=== PATIENT | female | born 1995 | race Hispanic/Latino ===

== ENCOUNTER 2017-04-29 18:27 | Emergency (ER) | payer MEDICAID ==
[~2017-04-29] VITALS: Ht 157.5 cm; Wt 63.6 kg
[~2017-04-29 18:27] MED LIST: ACHD5005 PO; ALBU8.5H2 IH; CEFU250T11 PO; CEPH250C PO; CEPH500C PO; CODE-54 PO; DCS100C PO; FAMO20TA13 PO; FLUO20CA42 PO; FRS325T PO; GFN600TCR PO; Hydrocodone Bit/Acetaminophen PO; IBP600T1 PO; LBT200T PO; NITR-65 PO; PENI500T PO; PHEN200T27 PO; PRCD5U PO; PRD10T PO; PREN-93 PO; PREN-98 PO; SULF-222 PO
[2017-04-29] MEDS ORDERED: NS IV 500 ML 500 ML IV ONE (18:45)
--- NOTE | 2017-04-29 18:54 | ED GI ---
General Chief Complaint: Abdominal/GI Problems Stated Complaint: HOT AND COLD FLASHES Nursing Triage Note: PT AMBULATED TO ROOM. PT COMPLAINS OF HOT AND COLD FLASHES, LOWER STOMACH PAIN AND VOMITING FOR 3-4 DAYS. PT STATES SHE HASN'T HAD A BM FOR 3-4 DAYS ALSO. Sepsis Screen: No Definite Risk Source of Information: Patient Exam Limitations: No Limitations History of Present Illness Time Seen By Provider: 18:44 Initial Comments Patient presents to ER with a chief complaint of nausea vomiting constipation and abdominal pain for the past 2 days. She says about 4 days ago she had a sore throat associated borrowed some antibiotics off a neighbor and taken them for 2 days but then her sore throat resolved so she stopped taking them. That's when she started experiencing nausea vomiting and constipation. She also feels the past 2 days she's had chills. She has no throat pain anymore. She's had no blood in her vomitus. No rashes. She has not checked her objective temperature. She states she does not drink, smoke and only occasionally uses marijuana. She says she got her Depo-Provera shot on the and has been on Depo-Provera for several years with no periods. Her last period or spotting was over a year ago. She denies discharge. Allergies and Home Medications Allergies Coded Allergies: No Known Drug Allergies (Unverified , 07/30/13) Home Medications Fluoxetine Hcl 20 Mg Capsule, 1 EACH PO DAILY, (Reported) Ibuprofen 600 Mg Tab, 600 MG PO Q6H PRN for PAIN, #80 Prescribed by: JERAMY COLON on 12/31/14 0817 Nitrofurantoin Macrocrystal 100 Mg Capsule, 100 MG PO BID for 7 Days, #14 Ref 0 Prescribed by: JOSE LUIS ROBLEDO on 04/29/171946 Ondansetron 4 Mg Tab.rapdis, 4 MG PO Q6H PRN for NAUSEA/VOMITING-1ST LINE, #10 Ref 0 Prescribed by: JOSE LUIS ROBLEDO on 04/29/171946 Penicillin V Potassium 500 Mg Tablet, 500 MG PO QID, #40 Prescribed by: RAUL DE SOUZA on 05/11/16 0703 Prednisone 10 Mg Tab, 40 MG PO DAILY, #12 Prescribed by: RAUL DE SOUZA on 05/11/16 0703 Review of Systems Constitutional: chills, diaphoresis, No fever, malaise EENTM: No Eye Pain, No Ear Pain Respiratory: Denies Cough, Denies Shortness of Air Cardiovascular: Denies Chest Pain, Denies Lightheadedness Gastrointestinal: Abdominal Pain (epigastric), Constipated, Denies Diarrhea, Nausea, Vomiting Genitourinary: Denies Burning, Denies Discharge, Denies Drainage Musculoskeletal: back pain (chronic upper back pain), No joint pain Skin: No pruritus, No rash Psychiatric/Neurological: Denies Headache, Denies Numbness, Denies Paresthesia Past Gjdwlpv-Yntqoe-Okmanp Hx Patient Social History Alcohol Use: Denies Use Recreational Drug Use: Yes (occasional marijuana use) Smoking Status: Never a Smoker 2nd Hand Smoke Exposure: No Recent Foreign Travel: No Contact w/Someone Who Travel: No Recent Infectious Disease Expo: No Recent Hopitalizations: No Physical Abuse: No Sexual Abuse: No Immunizations Up To Date Tetanus Booster (TDap): Less than 5yrs PED Vaccines UTD: No Date of Influenza Vaccine: Jul 22, 2014 Seasonal Allergies Seasonal Allergies: No Surgeries History of Surgeries: Yes ( X 2) Surgeries: Section Respiratory History of Respiratory Disorde: No Cardiovascular History of Cardiac Disorders: No Neurological History of Neurological Disord: No Reproductive System Hx Reproductive Disorders: No Genitourinary History of Genitourinary Disor: No Gastrointestinal History of Gastrointestinal Di: No Musculoskeletal History of Musculoskeletal Dis: No Endocrine History of Endocrine Disorders: No HEENT History of HEENT Disorders: No HEENT Disorders: Tonsilitis Cancer History of Cancer: No Psychosocial History of Psychiatric Problem: Yes Behavioral Health Disorders: Anxiety, Depression Suicide Risk Score: 0 Integumentary History of Skin or Integumenta: No Blood Transfusions History of Blood Disorders: No Adverse Reaction to a Blood Tr: No Family Medical History Family Medial History: Family history: Asthma 03 MOTHER Family history: Diabetes mellitus 03 FATHER PATERNAL GRANDMOTHER Stroke 03 FATHER Physical Exam Vital Signs VS - Last 72 Hours, by Label 04/29/17 18:32 Temp 96.2 Pulse 83 Resp 20 B/P (MAP) 149/110 Pulse Ox 100 O2 Delivery Room Air Capillary Refill : Less Than 3 Seconds General Appearance: WD/WN, mild distress HEENT: PERRL/EOMI, pharyngeal erythema (with tonsillar enlargement without exudates), other (bilateral TMs retracted with mucoid effusion) Neck: non-tender, supple, normal inspection Respiratory: chest non-tender, lungs clear, normal breath sounds, no respiratory distress, no accessory muscle use Cardiovascular: normal peripheral pulses, regular rate, rhythm, no edema, no murmur Peripheral Pulses: 2+ Dorsalis Pedis (R), 2+ Left Dors-Pedis (L), 2+ Radial Pulses (R), 2+ Radial Pulses (L) Gastrointestinal: non tender, soft, no organomegaly, other (hypoactive bowel sounds) Extremities: normal range of motion, non-tender, normal inspection, no pedal edema, no calf tenderness, normal capillary refill Back: normal inspection, no CVA tenderness Neurologic/Psychiatric: alert, oriented x 3 Skin: normal color, warm/dry Progress/Results/Core Measures Results/Orders Lab Results Laboratory Tests Test 04/29/17 18:32 04/29/17 18:56 04/29/17 19:21 Range/Units Urine Color YELLOW Urine Clarity SLIGHTLY CLOUDY Urine pH 6 5-9 Urine Specific [place] 1.025 H 1.016-1.022 Urine Protein 2+ H NEGATIVE Urine Glucose (UA) NEGATIVE NEGATIVE Urine Ketones NEGATIVE NEGATIVE Urine Nitrite NEGATIVE NEGATIVE Urine Bilirubin NEGATIVE NEGATIVE Urine Urobilinogen NORMAL NORMAL MG/DL Urine Leukocyte Esterase 1+ H NEGATIVE Urine RBC (Auto) 1+ H NEGATIVE Urine RBC 2-5 H /HPF Urine WBC 10-25 H /HPF Urine Squamous Epithelial Cells 5-10 /HPF Urine Crystals NONE /LPF Urine Bacteria TRACE /HPF Urine Casts NONE /LPF Urine Mucus LARGE H /LPF Urine Culture Indicated YES Urine Opiates Screen NEGATIVE NEGATIVE Urine Oxycodone Screen NEGATIVE NEGATIVE Urine Methadone Screen NEGATIVE NEGATIVE Urine Propoxyphene Screen NEGATIVE NEGATIVE Urine Barbiturates Screen NEGATIVE NEGATIVE Ur Tricyclic Antidepressants Screen NEGATIVE NEGATIVE Urine Phencyclidine Screen NEGATIVE NEGATIVE Urine Amphetamines Screen NEGATIVE NEGATIVE Urine Methamphetamines Screen NEGATIVE NEGATIVE Urine Benzodiazepines Screen NEGATIVE NEGATIVE Urine Cocaine Screen NEGATIVE NEGATIVE Urine Cannabinoids Screen POSITIVE H NEGATIVE White Blood Count 15.3 H 4.3-11.0 10^3/uL Red Blood Count 4.87 4.35-5.85 10^6/uL Hemoglobin 14.0 11.5-16.0 G/DL Hematocrit 42 35-52 % Mean Corpuscular Volume 87 80-99 FL Mean Corpuscular Hemoglobin 29 25-34 PG Mean Corpuscular Hemoglobin Concent 33 32-36 G/DL Red Cell Distribution Width 13.1 10.0-14.5 % Platelet Count 264 130-400 10^3/uL Mean Platelet Volume 11.7 H 7.4-10.4 FL Neutrophils (%) (Auto) 74 42-75 % Lymphocytes (%) (Auto) 19 12-44 % Monocytes (%) (Auto) 5 0-12 % Eosinophils (%) (Auto) 1 0-10 % Basophils (%) (Auto) 1 0-10 % Neutrophils # (Auto) 11.3 H 1.8-7.8 X 10^3 Lymphocytes # (Auto) 2.9 1.0-4.0 X 10^3 Monocytes # (Auto) 0.8 0.0-1.0 X 10^3 Eosinophils # (Auto) 0.2 0.0-0.3 10^3/uL Basophils # (Auto) 0.1 0.0-0.1 10^3/uL Neutrophils % (Manual) 67 % Lymphocytes % (Manual) 23 % Monocytes % (Manual) 3 % Eosinophils % (Manual) 0 % Basophils % (Manual) 1 % Metamyelocytes % 2 % Band Neutrophils 4 % Blood Morphology Comment NORMAL Sodium Level 141 135-145 MMOL/L Potassium Level 3.6 3.6-5.0 MMOL/L Chloride Level 107 98-107 MMOL/L Carbon Dioxide Level 18 L 21-32 MMOL/L Anion Gap 16 H 5-14 MMOL/L Blood Urea Nitrogen 8 7-18 MG/DL Creatinine 0.65 0.60-1.30 MG/DL Estimat Glomerular Filtration Rate > 60 BUN/Creatinine Ratio 12 Glucose Level 112 H 70-105 MG/DL Calcium Level 9.9 8.5-10.1 MG/DL Magnesium Level 2.6 H 1.8-2.4 MG/DL Total Bilirubin 0.2 0.1-1.0 MG/DL Aspartate Amino Transf (AST/SGOT) 14 5-34 U/L Alanine Aminotransferase (ALT/SGPT) 13 0-55 U/L Alkaline Phosphatase 83 40-136 U/L Total Protein 7.7 6.4-8.2 GM/DL Albumin 4.7 H 3.2-4.5 GM/DL Lipase 24 8-78 U/L Group A Streptococcus Screen POSITIVE H NEGATIVE My Orders Orders - JOSE LUIS RBOLEDO Cbc With Automated Diff (04/29/17 18:45) Comprehensive Metabolic Panel (04/29/17 18:45) Drug Screen Stat (Urine) (04/29/17 18:45) Lipase (04/29/17 18:45) Magnesium (04/29/17 18:45) Rapid Strep A Screen (04/29/17 18:45) Ua Culture If Indicated (04/29/17 18:45) Chest 1 View, Ap/Pa Only (04/29/17 18:45) Abdomen/Kub 1view (04/29/17 18:45) Saline Lock/Iv-Start (04/29/17 18:45) Ns Iv 500 Ml (Sodium Chloride 0.9%) (04/29/17 18:45) Urine Bedside (04/29/17 18:45) Manual Differential (04/29/17 18:56) Urine Culture (04/29/17 18:32) Medications Given in ED Current Medications Medications Dose Ordered Sig/Brittaney Route Start Time Stop Time Status Last Admin Dose Admin Sodium Chloride 500 ml @ 0 mls/hr Q0M ONCE IV 04/29/17 18:45 04/29/17 18:49 DC 04/29/17 19:25 500 MLS/HR Vital Signs/I&O Vital Sign - Last 12Hours 04/29/17 18:32 Temp 96.2 Pulse 83 Resp 20 B/P (MAP) 149/110 Pulse Ox 100 O2 Delivery Room Air Blood Pressure Mean: 123 Progress Note #1: Time: 18:54 Progress Note Nonspecific presentation without a acute abdomen on exam. We'll get an x-ray looking for constipation. She is not febrile but she has been nauseated so we' ll go ahead and give her some fluids. We will get a chest x-ray and some blood in urine and look for signs of infection. Progress Note #2: Time: 19:40 Progress Note No signs of obstruction on the abdominal x-ray and is a mild white count. Her urine is contaminated but very well ties together the diagnoses. Because she has a rather on acute abdomen on clinical exam will go ahead and accept this diagnosis and treat her with some outpatient antibiotics. Will choose amoxicillin for its ability to hopefully treat the UTI as well as the strep throat. Diagnostic Imaging Diagonstic Imaging: Xray Plain Films/CT/US/NM/MRI: chest [facility] [place], [place] NAME: ANNABEL FLOOD [facility] REC#: [id number] PT STATUS: REG ER : 1995 PHYSICIAN: JOSE LUIS ROBLEDO MD ADMIT DATE: 04/29/17/ER Draft Date of Exam:04/29/17 CHEST 1 VIEW, AP/PA ONLY EXAMINATION: Single view of the chest. INDICATION: Abdominal pain and vomiting. COMPARISON: Prior study from September 02, 2014. FINDINGS: Lungs are clear without evidence of infiltrate or effusion. There is no pneumothorax. Heart size and mediastinal contours appear appropriate. Prominent vascularity appears within normal limits. No acute osseous abnormality is demonstrated. IMPRESSION: No radiographic evidence of an acute cardiopulmonary process. Dictated on workstation # [id number] Dict: 04/29/171914 Trans: 04/29/171919 PJRia [id number] Interpreted by: MICHOACANO COX MD Electronically signed by: Reviewed: Reviewed by [place] Diagonstic Imaging: Xray Plain Films/CT/US/NM/MRI: abdomen Comments [facility]. [place], [place] NAME: ANNABEL FLOOD [facility] REC#: [id number] PT STATUS: REG ER : 1995 PHYSICIAN: JOSE LUIS ROBLEDO MD ADMIT DATE: 04/29/17/ER Draft Date of Exam:04/29/17 ABDOMEN/KUB 1VIEW EXAMINATION: Two views of the abdomen. INDICATION: Upper abdominal pain with vomiting and constipation. FINDINGS: The bowel gas pattern appears nonobstructed. No abnormal bowel dilation is evident. There is moderate stool within the right colon, transverse colon and within the left colon. There is no significant stool at the level of the rectum. There are no unexpected abdominal calcifications demonstrated and there is no evidence of pneumatosis. No osseous abnormality is demonstrated. IMPRESSION: Moderate stool within the colon. There is no bowel dilation to suggest obstruction. Dictated on workstation # [id number] Dict: 04/29/171914 Trans: 04/29/171917 PJRia [id number] Interpreted by: MICHOACANO COX MD Electronically signed by: Reviewed: Reviewed by Me Departure Impression Impression: Primary Impression: Strep pharyngitis Additional Impressions: Urinary tract infection Qualified Codes: N30.01 - Acute cystitis with hematuria Nausea and vomiting Qualified Codes: R11.2 - Nausea with vomiting, unspecified Disposition: HOME, SELF-CARE Condition: Stable Departure-Patient Inst. Decision time for Depature: 19:50 Referrals: [facility] (PCP/Family) Primary Care Physician Patient Instructions: Urinary Tract Infection, Adult (DC) Add. Discharge Instructions: Drink copious amounts of fluids and take antibiotics as prescribed 1000 mg twice a day with food. If you have a sore throat you can use salt water gargles. Please continue to take the antibiotics to completion for ten days. If you have nausea take Zofran and place one tablet under your tongue allowed to absorb every 6 hours as needed. If you have new or progressively worsening symptoms you may return to the ER or follow up with her primary care physician coming Monday. All discharge instructions reviewed with patient and/or family. Voiced understanding. Scripts Amoxicillin (Amoxicillin) 500 Mg Capsule 1000 MG PO BID for 10 Days, #38 CAP 0 Refills Prov: JOSE LUIS ROBLEDO 04/29/17 Ondansetron (Zofran Odt) 4 Mg Tab.rapdis 4 MG PO Q6H Y for NAUSEA/VOMITING-1ST LINE, #10 TAB 0 Refills Prov: JOSE LUIS ROBLEDO 04/29/17 Work/School Note: Work Release Form Date Seen in the Emergency Department: Apr 29, 2017 Return to Work: May 02, 2017 Restrictions: No Restrictions Copy Copies To 1: DMITRIY IBARRA TITUS J Apr 29, 2017 18:54
[2017-04-29 18:55] LABS: BILIRUBIN,URINE NEGATIVE (NEGATIVE); KETONES,URINE NEGATIVE (NEGATIVE); LEUKOCYTE ESTERASE ,URINE 1+ (NEGATIVE); NITRITE,URINE NEGATIVE (NEGATIVE); PH,URINE 6 (5-9); PROTEIN,URINE 2+ (NEGATIVE); UROBILINOGEN,URINE NORMAL (NORMAL)
[2017-04-29 19:09] LABS: BASOPHILS # (AUTO) 0.1 10^3/uL (0.0-0.1); BASOPHILS % (AUTO) 1 % (0-10); EOSINOPHILS # (AUTO) 0.2 10^3/uL (0.0-0.3); EOSINOPHILS % (AUTO) 1 % (0-10); LYMPHOCYTES # (AUTO) 2.9 X 10^3 (1.0-4.0); LYMPHOCYTES % (AUTO) 19 % (12-44); MEAN CORPUSCULAR HEMOGLOBIN 29 PG (25-34); MEAN CORPUSCULAR HGB CONC 33 G/DL (32-36); MEAN CORPUSCULAR VOLUME 87 FL (80-99); MEAN PLATELET VOLUME 11.7 FL (7.4-10.4); MONOCYTES # (AUTO) 0.8 X 10^3 (0.0-1.0); MONOCYTES % (AUTO) 5 % (0-12); NEUTROPHILS # (AUTO) 11.3 X 10^3 (1.8-7.8); NEUTROPHILS % (AUTO) 74 % (42-75); PLATELET COUNT 264 10^3/uL (130-400); RED BLOOD COUNT 4.87 10^6/uL (4.35-5.85); RED CELL DISTRIBUTION WIDTH 13.1 % (10.0-14.5); WHITE BLOOD COUNT 15.3 10^3/uL (4.3-11.0)
--- NOTE | 2017-04-29 19:18 | Diagnostic Imaging Report ---
EXAMINATION: Two views of the abdomen. INDICATION: Upper abdominal pain with vomiting and constipation. FINDINGS: The bowel gas pattern appears nonobstructed. No abnormal bowel dilation is evident. There is moderate stool within the right colon, transverse colon and within the left colon. There is no significant stool at the level of the rectum. There are no unexpected abdominal calcifications demonstrated and there is no evidence of pneumatosis. No osseous abnormality is demonstrated. IMPRESSION: Moderate stool within the colon. There is no bowel dilation to suggest obstruction. Dictated by: Dictated on workstation # [id number]
--- NOTE | 2017-04-29 19:21 | Diagnostic Imaging Report ---
EXAMINATION: Single view of the chest. INDICATION: Abdominal pain and vomiting. COMPARISON: Prior study from September 02, 2014. FINDINGS: Lungs are clear without evidence of infiltrate or effusion. There is no pneumothorax. Heart size and mediastinal contours appear appropriate. Prominent vascularity appears within normal limits. No acute osseous abnormality is demonstrated. IMPRESSION: No radiographic evidence of an acute cardiopulmonary process. Dictated by: Dictated on workstation # [id number]
[2017-04-29 19:30] LABS: ALANINE AMINOTRANSFERASE 13 U/L (0-55); ALBUMIN 4.7 GM/DL (3.2-4.5); ANION GAP 16 MMOL/L (5-14); ASPARTATE AMINO TRANSFERASE 14 U/L (5-34); BAND NEUTROPHILS 4 %; BASOPHILS % (MANUAL) 1 %; BILIRUBIN,TOTAL 0.2 MG/DL (0.1-1.0); BLOOD UREA NITROGEN 8 MG/DL (7-18); BUN/CREATININE RATIO 12; CALCIUM 9.9 MG/DL (8.5-10.1); CARBON DIOXIDE 18 MMOL/L (21-32); CHLORIDE 107 MMOL/L (98-107); CREATININE SERUM 0.65 MG/DL (0.60-1.30); EOSINOPHILS % (MANUAL) 0 %; GFR ESTIMATED > 60; GLUCOSE 112 MG/DL (70-105); LIPASE 24 U/L (8-78); LYMPHOCYTES % (MANUAL) 23 %; MAGNESIUM 2.6 MG/DL (1.8-2.4); METAMYELOCYTES % 2 %; NEUTROPHILS % (MANUAL) 67 %; POTASSIUM 3.6 MMOL/L (3.6-5.0); SODIUM 141 MMOL/L (135-145); TOTAL PROTEIN 7.7 GM/DL (6.4-8.2)
[2017-04-29] MEDS ORDERED: NITR100C PO (19:47)
[2017-04-29] MEDS ORDERED: ONDA4TAB8 PO (19:47)
[2017-04-29] MEDS ORDERED: AMOXICILLIN 500 MG (POLYMOX) CAP PO STA (19:48)
[2017-04-29] MEDS ORDERED: AMOX500C2 PO (19:52)
[2017-04-29] MEDS ORDERED: RX-ONDANSETRON 4 MG ODT (ZOFRAN) PPK #4 PO STA (19:56)
[2017-04-29] MEDS ORDERED: ONDANSETRON 4 MG/2 ML (SDV) Z0FRAN IVP ONE (20:00)
[2017-04-29 20:05] VITALS: BP 149/110
== END 2017-04-29 20:05 | disposition home or self-care (01) ==
LOC: EDUNIT# 18:27 → ER 18:28
DX: J02.0 Streptococcal pharyngitis (principal); N39.0 Urinary tract infection, site not specified; F32.9 Major depressive disorder, single episode, unspecified; F41.9 Anxiety disorder, unspecified; F12.10 Cannabis abuse, uncomplicated; Z87.59 Personal history of other complications of pregnancy, childbirth and the puerperium
CPT/HCPCS: 36415; 71010; 74000; 80053; 80306; 81000; 83690; 83735; 84703; 85007; 85027; 87088; 87430; 96361; 96374

== ENCOUNTER 2021-02-09 14:04 | Emergency (ER) | payer SELFPAY ==
[~2021-02-09] VITALS: Ht 157 cm; Wt 58.0 kg
[~2021-02-09 14:04] MED LIST changes: +AMOX500C2 PO; +NITR100C PO; +ONDA4TAB8 PO
[2021-02-09 14:44] LABS: BASOPHILS % (AUTO) 0 % (0-10); EOSINOPHILS # (AUTO) 0.4 10^3/uL (0.0-0.3); EOSINOPHILS % (AUTO) 3 % (0-10); HEMATOCRIT 38 % (35-52); HEMOGLOBIN 12.3 g/dL (11.5-16.0); LYMPHOCYTES # (AUTO) 1.9 10^3/uL (1.0-4.0); LYMPHOCYTES % (AUTO) 16 % (12-44); MEAN CORPUSCULAR HEMOGLOBIN 29 pg (25-34); MEAN CORPUSCULAR HGB CONC 32 g/dL (32-36); MEAN CORPUSCULAR VOLUME 92 fL (80-99); MEAN PLATELET VOLUME 12.3 fL (9.0-12.2); MONOCYTES % (AUTO) 9 % (0-12); NEUTROPHILS # (AUTO) 8.7 10^3/uL (1.8-7.8); NEUTROPHILS % (AUTO) 72 % (42-75); PLATELET COUNT 255 10^3/uL (130-400)
[2021-02-09] MEDS ORDERED: KETOROLAC 30 MG/ML VIAL IVP ONE (14:45)
[2021-02-09] MEDS ORDERED: cefTRIAXone 1,000 MG in WATER (STERILE) FOR INJECTION 10 ML IV ONE (14:45)
[2021-02-09] MEDS ORDERED: NS IV 1000 ML 1,000 ML IV SCH (14:45)
--- NOTE | 2021-02-09 14:47 | ED EENT ---
History of Present Illness General Chief Complaint: Oral/Throat Problems Stated Complaint: SORE THROAT,COUGH, FEVER,HARRIS Nursing Triage Note: AMB TO ROOM WITH C/O SORETHROAT REPORTS SON AND BOTH HAVE STREP THRAOT. Source: patient Exam Limitations: no limitations History of Present Illness Date Seen by Provider: Feb 09, 2021 Time Seen by Provider: 14:43 Initial Comments To ER with sore throat x48 hours. and son both are on antibiotics for strep throat. No cough. Unable to swallow today because of severe throat pain. Timing/Duration: abrupt Severity: moderate Location: throat Associated Symptoms: sore throat Allergies and Home Medications Allergies Coded Allergies: No Known Drug Allergies (Unverified , 07/30/13) Home Medications Amoxicillin 500 Mg Capsule, 1,000 MG PO BID Prescribed by: JOSE LUIS ROBLEDO on 04/29/171951 Fluoxetine Hcl 20 Mg Capsule, 1 EACH PO DAILY, (Reported) Ibuprofen 600 Mg Tab, 600 MG PO Q6H PRN for PAIN Prescribed by: JERAMY COLON on 12/31/14816 Ondansetron 4 Mg Tab.rapdis, 4 MG PO Q6H PRN for NAUSEA/VOMITING-1ST LINE Prescribed by: JOSE LUIS ROBLEDO on 04/29/171946 Penicillin V Potassium 500 Mg Tablet, 500 MG PO QID Prescribed by: RAUL DE SOUZA on 05/11/16 07 Prednisone 10 Mg Tab, 40 MG PO DAILY Prescribed by: RAUL DE SOUZA on 05/11/16 0703 Patient Home Medication List Home Medication List Reviewed: Yes Review of Systems Review of Systems Constitutional: see HPI, chills, malaise Eyes: No Symptoms Reported Ears: No Symptoms Reported Nose: no symptoms reported Mouth: no symptoms reported Throat: see HPI, pain, swelling Respiratory: no symptoms reported; No cough, No short of breath Cardiovascular: no symptoms reported Musculoskeletal: no symptoms reported Skin: no symptoms reported Neurological: No Symptoms Reported Hematologic/Lymphatic: No Symptoms Reported Immunological/Allergic: no symptoms reported Past Vcfpeya-Mohdrn-Odmonb Hx Patient Social History Alcohol Use: Denies Use Smoking Status: Current Everyday Smoker 2nd Hand Smoke Exposure: No Recent Infectious Disease Expo: No Recent Hopitalizations: No Immunizations Up To Date Tetanus Booster (TDap): Less than 5yrs PED Vaccines UTD: No Date of Influenza Vaccine: Jul 22, 2014 Seasonal Allergies Seasonal Allergies: No Past Medical History Surgeries: Yes ( X 2) Section Respiratory: No Cardiac: No Neurological: No Reproductive Disorders: No Genitourinary: No Gastrointestinal: No Musculoskeletal: No Endocrine: No HEENT: No Tonsilitis Cancer: No Psychosocial: Yes Anxiety, Depression Integumentary: No Blood Disorders: No Adverse Reaction/Blood Tranf: No Family Medical History Family history: Asthma 03 MOTHER Family history: Diabetes mellitus 03 FATHER PATERNAL GRANDMOTHER Stroke 03 FATHER Physical Exam Vital Signs Vital Signs - First Documented 02/09/21 14:14 Temp 37.2 Pulse 107 Resp 18 B/P (MAP) 114/75 (88) Pulse Ox 99 O2 Delivery Room Air Height, Weight, BMI Height: 5'2" Weight: 140lbs. 4.0oz. 63.119019cq; 23.00 BMI Method:Stated General Appearance: WD/WN, no apparent distress Eyes: bilateral eye normal inspection, bilateral eye PERRL, bilateral eye EOMI Ears: bilateral ear auricle normal, bilateral ear canal normal, bilateral ear TM normal Mouth/Throat: other (mild trismus) Neck: non-tender, full range of motion, lymphadenopathy (R), lymphadenopathy (L) Cardiovascular: no murmur, tachycardia Respiratory: lungs clear, normal breath sounds, no respiratory distress, no accessory muscle use Gastrointestinal: normal bowel sounds, non tender Neurologic/Psychiatric: alert, normal mood/affect, oriented x 3 Skin: normal color, warm/dry Progress/Results/Core Measures Results/Orders Lab Results Laboratory Tests Test 02/09/21 14:37 Range/Units White Blood Count 12.0 H 4.3-11.0 10^3/uL Red Blood Count 4.18 3.80-5.11 10^6/uL Hemoglobin 12.3 11.5-16.0 g/dL Hematocrit 38 35-52 % Mean Corpuscular Volume 92 80-99 fL Mean Corpuscular Hemoglobin 29 25-34 pg Mean Corpuscular Hemoglobin Concent 32 32-36 g/dL Red Cell Distribution Width 14.0 10.0-14.5 % Platelet Count 255 130-400 10^3/uL Mean Platelet Volume 12.3 H 9.0-12.2 fL Immature Granulocyte % (Auto) 0 % Neutrophils (%) (Auto) 72 42-75 % Lymphocytes (%) (Auto) 16 12-44 % Monocytes (%) (Auto) 9 0-12 % Eosinophils (%) (Auto) 3 0-10 % Basophils (%) (Auto) 0 0-10 % Neutrophils # (Auto) 8.7 H 1.8-7.8 10^3/uL Lymphocytes # (Auto) 1.9 1.0-4.0 10^3/uL Monocytes # (Auto) 1.0 0.0-1.0 10^3/uL Eosinophils # (Auto) 0.4 H 0.0-0.3 10^3/uL Basophils # (Auto) 0.0 0.0-0.1 10^3/uL Immature Granulocyte # (Auto) 0.1 0.0-0.1 10^3/uL Sodium Level 137 135-145 MMOL/L Potassium Level 3.7 3.6-5.0 MMOL/L Chloride Level 105 98-107 MMOL/L Carbon Dioxide Level 20 L 21-32 MMOL/L Anion Gap 12 5-14 MMOL/L Blood Urea Nitrogen 13 7-18 MG/DL Creatinine 0.63 0.60-1.30 MG/DL Estimat Glomerular Filtration Rate > 60 BUN/Creatinine Ratio 21 Glucose Level 117 H 70-105 MG/DL Calcium Level 9.2 8.5-10.1 MG/DL Corrected Calcium 9.3 8.5-10.1 MG/DL Total Bilirubin 0.3 0.1-1.0 MG/DL Aspartate Amino Transf (AST/SGOT) 33 5-34 U/L Alanine Aminotransferase (ALT/SGPT) 108 H 0-55 U/L Alkaline Phosphatase 80 40-136 U/L Total Protein 7.1 6.4-8.2 GM/DL Albumin 3.9 3.2-4.5 GM/DL Serum Test, Qualitative NEGATIVE NEGATIVE Monoscreen NEGATIVE NEGATIVE My Orders Orders - MARÍA WALSH APRN Covid 19 Inhouse Test (02/09/21 14:21) Rapid Strep A Screen (02/09/21 14:21) Influenza A And B By Pcr (02/09/21 14:21) Cbc With Automated Diff (02/09/21 14:39) Monotest (02/09/21 14:39) Comprehensive Metabolic Panel (02/09/21 14:39) Hcg,Qualitative Serum (02/09/21 14:40) Ns Iv 1000 Ml (Sodium Chloride 0.9%) (02/09/21 14:45) Ketorolac Injection (Toradol Injection) (02/09/21 14:45) Dexamethasone Injection (Decadron Inje (02/09/21 14:45) Ceftriaxone (Rocephin) (02/09/21 14:45) Medications Given in ED Current Medications Medications Dose Ordered Sig/Brittaney Route Start Time Stop Time Status Last Admin Dose Admin Ceftriaxone Sodium 1000 mg/ Sterile Water 10 ml @ 200 mls/hr ONCE ONCE IV 02/09/21 14:45 02/09/21 14:47 DC 02/09/21 14:57 200 MLS/HR Dexamethasone Sodium Phosphate 10 mg ONCE ONCE IV 02/09/21 14:45 02/09/21 14:46 DC 02/09/21 14:55 10 MG Ketorolac Tromethamine 15 mg ONCE ONCE IVP 02/09/21 14:45 02/09/21 14:46 DC 02/09/21 14:54 15 MG Vital Signs/I&O 02/09/21 14:14 Temp 37.2 Pulse 107 Resp 18 B/P (MAP) 114/75 (88) Pulse Ox 99 O2 Delivery Room Air Blood Pressure Mean: 88 Departure Communication (Admissions) Because of her tachycardia rate of 117 and inability to swallow much because of pain today I will give her a bag of fluids, some Decadron, rocephin, toradol. Tonsils are nearly kissing and with exudate. There is no uvular deviation in the uvula is midline--do not have concern for peritonsillar abscess at this time. Impression Primary Impression: Exudative pharyngitis Disposition: 01 HOME, SELF-CARE Condition: Improved Departure-Patient Inst. Decision time for Depature: 14:47 Referrals: [facility] (PCP/Family) Primary Care Physician Patient Instructions: NO INSTRUCTIONS GIVEN Add. Discharge Instructions: All discharge instructions reviewed with patient and/or family. Voiced understanding. Scripts Cefuroxime Axetil (Cefuroxime) 250 Mg Tablet 250 MG PO BID, #10 TAB Prov: MARÍA WALSH APRN 02/09/21 Prednisone (Prednisone) 20 Mg Tab 40 MG PO DAILY, #6 TAB 0 Refills Prov: MARÍA WALSH APRN 02/09/21 Work/School Note: Work Release Form Date Seen in the Emergency Department: Feb 09, 2021 Return to Work: Feb 13, 2021 MARÍA WALSH APRN Feb 09, 2021 14:47
[2021-02-09 14:52] LABS: ALBUMIN 3.9 GM/DL (3.2-4.5); CHLORIDE 105 MMOL/L (98-107); POTASSIUM 3.7 MMOL/L (3.6-5.0); SODIUM 137 MMOL/L (135-145)
[2021-02-09 14:53] LABS: CALCIUM 9.2 MG/DL (8.5-10.1)
[2021-02-09 14:54] LABS: GLUCOSE 117 MG/DL (70-105)
[2021-02-09 14:55] LABS: TOTAL PROTEIN 7.1 GM/DL (6.4-8.2)
[2021-02-09 14:56] LABS: BILIRUBIN,TOTAL 0.3 MG/DL (0.1-1.0); CARBON DIOXIDE 20 MMOL/L (21-32)
[2021-02-09 14:58] LABS: ALKALINE PHOSPHATASE 80 U/L (40-136); CREATININE SERUM 0.63 MG/DL (0.60-1.30); GFR ESTIMATED > 60
[2021-02-09 14:59] LABS: BUN/CREATININE RATIO 21
[2021-02-09 15:01] LABS: ALANINE AMINOTRANSFERASE 108 U/L (0-55)
[2021-02-09] MEDS ORDERED: CEFU250T80 PO (15:34)
[2021-02-09] MEDS ORDERED: PRD20T PO (15:34)
[2021-02-09 15:48] VITALS: BP 99/65
== END 2021-02-09 15:50 | disposition home or self-care (01) ==
LOC: EDUNIT# 14:04 → ER 14:06
DX: J02.9 Acute pharyngitis, unspecified (principal); F32.9 Major depressive disorder, single episode, unspecified; F17.200 Nicotine dependence, unspecified, uncomplicated; Z79.52 Long term (current) use of systemic steroids; Z79.899 Other long term (current) drug therapy
CPT/HCPCS: 36415; 80053; 84703; 85025; 86308

== ENCOUNTER 2021-03-14 20:05 | Emergency (ER) | payer SELFPAY ==
[~2021-03-14] VITALS: Ht 157 cm; Wt 58.0 kg
[~2021-03-14 20:05] MED LIST changes: +CEFU250T80 PO; +PRD20T PO
--- NOTE | 2021-03-14 20:33 | ED Psychosocial ---
General Chief Complaint: Psych/Social Disorder Stated Complaint: PSYCH ISSUES Nursing Triage Note: brought in by [facility] for c/o depression, feeling overwhelmed. reports suicidial thoughts by no plan. pt found laying in fire department yard. Source: patient Exam Limitations: no limitations (JOSE LUIS ROBLEDO) History of Present Illness Date Seen by Provider: Mar 14, 2021 Time Seen by Provider: 20:00 Initial Comments Patient to the ER by EMS where she was laying in the yard in front of the fire department. She states that she was exhausted and wanted to get out of the house. She was trying to find one of her family members to watch her kids and her dogs got out so she was calling for them. She finally did recover her dogs but then she felt exhausted so decided to lay down in the yard fire department. Police were summonsed and question her. Patient states she is tired and wants to close her eyes and be able to breathe. When asked if she suicidal directly she states yes she does have suicidal thoughts however she does not have a plan. She does cut on herself a few days ago with her last incidence. She also has used some recreational drugs other than cannabis but is elusive about which ones. She states her last use was sometime this week. She smokes about half pack cigarettes a day, daily marijuana and does not follow with a doctor. She says she used to follow with a psychiatrist on multiple therapists locally but does not have money to pay them. She says they started her on medicine but she does not member's name and she did feel it was helping at the time. She states a diagnosis of bipolar and schizophrenia. She is not seeing any pain or hearing any hallucinations. She has a lot of fear and anxiety related to someone who her family is staying with a gentleman who gives her unnamed fears. She says she does not want to speak anymore until her shows up. She states she feels dehydrated worn out and exhausted and has had some bloody dysuria as well as pain shooting up her right back down to her scar. Patient states she does not have. Since she started Depo Provera. (JOSE LUIS ROBLEDO) Allergies and Home Medications Allergies Coded Allergies: No Known Drug Allergies (Unverified , 07/30/13) Home Medications Amoxicillin 500 Mg Capsule, 1,000 MG PO BID Prescribed by: JOSE LUIS ROBLEDO on 04/29/171951 Cefuroxime Axetil 250 Mg Tablet, 250 MG PO BID Prescribed by: MARÍA WALSH on 02/09/21 153 Cephalexin 500 Mg Tablet, 500 MG PO BID Prescribed by: JOSE LUIS ROBLEDO on 03/15/21 06 Fluoxetine Hcl 20 Mg Capsule, 1 EACH PO DAILY, (Reported) Ibuprofen 600 Mg Tab, 600 MG PO Q6H PRN for PAIN Prescribed by: JERAMY COLON on 12/31/14 08 Ondansetron 4 Mg Tab.rapdis, 4 MG PO Q6H PRN for NAUSEA/VOMITING-1ST LINE Prescribed by: JOSE LUIS ROBLEDO on 04/29/171946 Penicillin V Potassium 500 Mg Tablet, 500 MG PO QID Prescribed by: RAUL DE SOUZA on 05/11/16702 Prednisone 10 Mg Tab, 40 MG PO DAILY Prescribed by: RAUL DE SOUZA on 05/11/16702 Prednisone 20 Mg Tab, 40 MG PO DAILY Prescribed by: MARÍA WALSH on 02/09/211533 Patient Home Medication List Home Medication List Reviewed: Yes (JOSE LUIS ROBLEDO) Review of Systems Constitutional: No chills, No diaphoresis, No fever; malaise, weakness EENTM: No ear pain, No eye pain Respiratory: No cough, No short of breath Cardiovascular: No chest pain, No edema, No palpitations Gastrointestinal: No abdominal pain, No nausea, No vomiting Genitourinary: dysuria; No frequency; hematuria : No Control/STD Prophylaxis: Depo Provera Musculoskeletal: back pain; No joint pain (JOSE LUIS ROBLEDO) All Other Systems Reviewed Negative Unless Noted: Yes (JOSE LUIS ROBLEDO) Past Ymnanji-Ozsurv-Rmymck Hx Patient Social History Tobacco Use?: Yes Tobacco type used: Cigarettes Smoking Status: Current Everyday Smoker Substance use?: Yes Substance type: Marijuana, Other Substance frequency: Daily Alcohol Use?: No Pt feels they are or have been: No (JOSE LUIS ROBLEDO) Immunizations Up To Date Tetanus Booster (TDap): Less than 5yrs PED Vaccines UTD: No (JOSE LUIS ROBLEDO) Seasonal Allergies Seasonal Allergies: No (JOSE LUIS ROBLEDO) Past Medical History Surgery/Hospitalization HX: denies Surgeries: Yes ( X 2) Section Respiratory: No Cardiac: No Neurological: No Reproductive Disorders: No Genitourinary: No Gastrointestinal: No Musculoskeletal: No Endocrine: No HEENT: No Tonsilitis Cancer: No Psychosocial: Yes Anxiety, Depression Integumentary: No Blood Disorders: No Adverse Reaction/Blood Tranf: No (JOSE LUIS ROBLEDO) Family Medical History Family history: Asthma 03 MOTHER Family history: Diabetes mellitus 03 FATHER PATERNAL GRANDMOTHER Stroke 03 FATHER Physical Exam Vital Signs - First Documented 03/14/21 20:05 Temp 36.7 Pulse 108 Resp 18 B/P (MAP) 128/88 (101) Pulse Ox 99 O2 Delivery Room Air (ALIZE EATON MD) Capillary Refill : Less Than 3 Seconds (JOSE LUIS ROBLEDO) Height, Weight, BMI Height: 5'2" Weight: 140lbs. 4.0oz. [id number]; 23.00 BMI Method:Stated General Appearance: WD/WN, mild distress HEENT: PERRL/EOMI, pharynx normal Neck: full range of motion, normal inspection Respiratory: lungs clear, normal breath sounds, no respiratory distress, no accessory muscle use Cardiovascular: normal peripheral pulses, regular rate, rhythm Gastrointestinal: normal bowel sounds, non tender, soft Extremities: non-tender, normal inspection, normal capillary refill Neurologic/Psychiatric: alert, other (Anxious affect, endorses paranoia. Denies hallucinations or homicidal ideation. She endorses passive suicidal thoughts without any plan.) Appearance/Memory: appropriate appearance, disheveled Behavior/Eye Contact: cooperative, good eye contact, normal speech Thoughts/Hallucinations: no apparent hallucination Skin: normal color, warm/dry (JOSE LUIS ROBLEDO) Progress/Results/Core Measures Results/Orders Lab Results Laboratory Tests Test 03/14/21 21:12 03/15/21 03:50 03/15/21 05:12 Range/Units White Blood Count 13.7 H 4.3-11.0 10^3/uL Red Blood Count 4.80 3.80-5.11 10^6/uL Hemoglobin 14.2 11.5-16.0 g/dL Hematocrit 43 35-52 % Mean Corpuscular Volume 89 80-99 fL Mean Corpuscular Hemoglobin 30 25-34 pg Mean Corpuscular Hemoglobin Concent 33 32-36 g/dL Red Cell Distribution Width 13.4 10.0-14.5 % Platelet Count 264 130-400 10^3/uL Mean Platelet Volume 12.0 9.0-12.2 fL Immature Granulocyte % (Auto) 0 % Neutrophils (%) (Auto) 64 42-75 % Lymphocytes (%) (Auto) 28 12-44 % Monocytes (%) (Auto) 7 0-12 % Eosinophils (%) (Auto) 1 0-10 % Basophils (%) (Auto) 0 0-10 % Neutrophils # (Auto) 8.7 H 1.8-7.8 10^3/uL Lymphocytes # (Auto) 3.8 1.0-4.0 10^3/uL Monocytes # (Auto) 1.0 0.0-1.0 10^3/uL Eosinophils # (Auto) 0.2 0.0-0.3 10^3/uL Basophils # (Auto) 0.0 0.0-0.1 10^3/uL Immature Granulocyte # (Auto) 0.1 0.0-0.1 10^3/uL Sodium Level 142 135-145 MMOL/L Potassium Level 3.9 3.6-5.0 MMOL/L Chloride Level 106 98-107 MMOL/L Carbon Dioxide Level 22 21-32 MMOL/L Anion Gap 14 5-14 MMOL/L Blood Urea Nitrogen 10 7-18 MG/DL Creatinine 0.74 0.60-1.30 MG/DL Estimat Glomerular Filtration Rate > 60 BUN/Creatinine Ratio 14 Glucose Level 92 70-105 MG/DL Calcium Level 10.1 8.5-10.1 MG/DL Corrected Calcium 8.5-10.1 MG/DL Total Bilirubin 0.5 0.1-1.0 MG/DL Aspartate Amino Transf (AST/SGOT) 14 5-34 U/L Alanine Aminotransferase (ALT/SGPT) 15 0-55 U/L Alkaline Phosphatase 82 40-136 U/L Total Protein 7.5 6.4-8.2 GM/DL Albumin 4.6 H 3.2-4.5 GM/DL Salicylates Level < 5.0 L 5.0-20.0 MG/DL Acetaminophen Level < 10 L 10-30 UG/ML Serum Alcohol < 10 <10 MG/DL Urine Color YELLOW Urine Clarity CLOUDY Urine pH 7.0 5-9 Urine Specific [place] 1.020 1.016-1.022 Urine Protein NEGATIVE NEGATIVE Urine Glucose (UA) NEGATIVE NEGATIVE Urine Ketones 2+ H NEGATIVE Urine Nitrite POSITIVE H NEGATIVE Urine Bilirubin NEGATIVE NEGATIVE Urine Urobilinogen 1.0 < = 1.0 MG/DL Urine Leukocyte Esterase 3+ H NEGATIVE Urine RBC (Auto) TRACE-I NEGATIVE Urine RBC 0-2 /HPF Urine WBC 25-50 H /HPF Urine Squamous Epithelial Cells RARE /HPF Urine Crystals NONE /LPF Urine Bacteria LARGE H /HPF Urine Casts NONE /LPF Urine Mucus SMALL H /LPF Urine Culture Indicated YES Urine Opiates Screen NEGATIVE NEGATIVE Urine Oxycodone Screen NEGATIVE NEGATIVE Urine Methadone Screen NEGATIVE NEGATIVE Urine Propoxyphene Screen NEGATIVE NEGATIVE Urine Barbiturates Screen NEGATIVE NEGATIVE Ur Tricyclic Antidepressants Screen NEGATIVE NEGATIVE Urine Phencyclidine Screen NEGATIVE NEGATIVE Urine Amphetamines Screen POSITIVE H NEGATIVE Urine Methamphetamines Screen POSITIVE H NEGATIVE Urine Benzodiazepines Screen NEGATIVE NEGATIVE Urine Cocaine Screen NEGATIVE NEGATIVE Urine Cannabinoids Screen POSITIVE H NEGATIVE SARS-CoV-2 RNA (RT-PCR) Not Detected Not Detecte (ALIZE EATON MD) My Orders Orders - ALIZE EATON MD General/Regular (03/15/21 Breakfast) (ALIZE EATON MD) Medications Given in ED Current Medications Medications Dose Ordered Sig/Brittaney Route Start Time Stop Time Status Last Admin Dose Admin Ceftriaxone Sodium 1000 mg/ Sterile Water 10 ml @ 200 mls/hr ONCE ONCE IV 03/15/21 05:00 03/15/21 05:02 DC 03/15/21 05:14 200 MLS/HR (ALIZE EATON MD) Vital Signs/I&O 03/15/21 00:00 Intake Total 1000 ml Balance 1000 ml (ALIZE EATON MD) Blood Pressure Mean: 101 Progress Progress Note #1: Time: 20:36 Progress Note Passive suicidal ideation. She refuses to talk anymore about this or what her plan would be to get treatment either outpatient or inpatient. She wants to speak more about this after her arrives. Her is working on getting childcare before coming out apparently. We will give her another half hour and readdress the situation. She has declined an IV stating she does not like needles. We will try and get an EKG and some urine but she appears to be clinically dry on examination and had a heart rate in the 105-110 range. Since she is declined IV fluids were discussed start with some oral fluids and attempt to induce some urine which she says she would gladly give for testing. Drug screen psychiatric screening and we will revisit her. She does not have any symptoms of COVID-19 at this time. Progress Note #2: Time: 21:57 Progress Note A conversation with the officer who met her and she states that he has been would not be coming out because she has custody of the kids and they do not have good transportation. He was at work while this happened. The told the officer that the patient has a history of schizophrenia and bipolar disorder and has not been on her medications for over a year. She has been hallucinating this roommate named "Chandler" and no one has ever seen this person including the officer. The police hotlined the patient and the custody of the children was given over to the . She is not allowed to go back home there. We discussed this with the patient and several times throughout our conversation the patient was tearful and would react to what she said were voices that she could hear in the room. She did not have any visual hallucinations. She denied that she was being commanded to do anything by the voices. She is clearly distraught and says she was wants to get back to her family. We explained to her that the best way to get back to her family would be to undergo voluntary psychiatric hospitalization and even offered to initiate some medications which she declined at this time. She says she would be voluntary to go at this time inpatient as long as she can get home to be with her kids. She denies having ever been inpatient for psychiatric care in the past because of the stigma associated with her mother who also had to have multiple inpatient stays in the hospital for psychiatric reasons. If for some reason the patient were to change her mind and no longer wanted to be voluntary then we would have to proceed and voluntary as she is clearly a danger to self with her suicidal ideation and self neglect. She did finally agree to an IV so we can do some IV fluids as the patient has not drank any of the water she was offered stating she is too weak to drink it. She does appear to be dehydrated and has some mild tachycardia however she is making tears and not having any nausea or abdominal pain associated with more significant heat injury. She has declined several times to get an EKG. Progress Note #3: Time: 02:06 Progress Note The patient got her IV fluids but has not drank anything. She has calm down. We have not given her any medicines yet. She did finally fall asleep and we are letting her sleep off what ever she may have taken. Hopefully she will be a little more organized with our interview after some rest. Will reattempt urine collection. The patient has adamantly refused EKG. She has however been fine with wearing the monitor and has had no dysrhythmias noted on monitor throughout her stay. Progress Note #4: Time: 06:15 Progress Note Care of the patient was shifted to Dr. Eaton. The patient has had her information faxed to the screeners who will screen the patient. Dr. Ivon Esparza has asked that she be screened and we have also forwarded information to Ivon Esparza. Patient is still voluntary to go. We have offered her something to eat and drink which she has declined. She did receive a liter of fluids. She did make urine and this demonstrated methamphetamines which is what we were told by her earlier to expect. Patient has been resting in her room with no further needs. She has been intermittently crying and her needs have been assessed throughout the night. The patient did receive a dose of Rocephin for her UTI. Plan to continue her on cephalexin 500 mg twice daily for the next 3 days. (JOSE LUIS ROBLEDO) Progress Note : Time: 11:47 Progress Note Long discussion with patient regarding need for voluntary placement in a mental health facility. Patient adamantly declines any type of mental health help today. She states that she needs to be home with her dogs and her children. She states that she cannot function without them and her . Patient states that she only used meth yesterday to help give her some energy because she is so fatigued with taking care of her children. Patient states that she is not going to harm her self. She states her helps her with that. She states that she does not go to [facility] or [facility] because she cannot afford it. I have strongly advised her that she will need some help. At this time [facility] do not believe that the patient meets criteria for involuntary commitment. We have no clinical or objective findings to warrant inpatient hospitalization today and again the patient is adamantly refusing voluntary mental health treatment. She does not appear to be hallucinating at this time. She is a little delusional regarding her son being "afraid of somebody" in the house yesterday. Patient will be discharged to home and states that if she cannot go back home then she will contact her mother for money for a hotel room. (ALIZE EATON MD) Initial ECG Intervals: QT (JOSE LUIS ROBLEDO) Departure Impression Primary Impression: Suicidal ideations Additional Impressions: Methamphetamine abuse UTI (urinary tract infection) Qualified Codes: N30.00 - Acute cystitis without hematuria Paranoid schizophrenia Disposition: HOME, SELF-CARE Condition: Stable Transfer Transfer Reason: Exceeds level of care (No inpatient psych) (JOSE LUIS ROBLEDO) Departure-Patient Inst. Decision time for Depature: 11:49 (ALIZE EATON MD) Referrals: [facility] (PCP/Family) Primary Care Physician Patient Instructions: Urinary Tract Infection, Adult (DC), Depression, Adult (DC) Add. Discharge Instructions: Please follow-up with [facility] in the [facility]. Return to the emergency room for any new, concerning or emergent complaints. Stop doing methamphetamine as this is likely worsening your depressive symptoms. Scripts Cephalexin (Cephalexin) 500 Mg Tablet 500 MG PO BID for 3 Days, #6 TAB 0 Refills Prov: JOSE LUIS ROBLEDO 03/15/21 JOSE LUIS ROBLEDO Mar 14, 2021 20:33 ALIZE EATON MD Mar 15, 2021 11:50
[2021-03-14 21:21] LABS: BASOPHILS % (AUTO) 0 % (0-10); EOSINOPHILS # (AUTO) 0.2 10^3/uL (0.0-0.3); EOSINOPHILS % (AUTO) 1 % (0-10); HEMATOCRIT 43 % (35-52); HEMOGLOBIN 14.2 g/dL (11.5-16.0); LYMPHOCYTES # (AUTO) 3.8 10^3/uL (1.0-4.0); LYMPHOCYTES % (AUTO) 28 % (12-44); MEAN CORPUSCULAR HEMOGLOBIN 30 pg (25-34); MEAN CORPUSCULAR HGB CONC 33 g/dL (32-36); MEAN CORPUSCULAR VOLUME 89 fL (80-99); MONOCYTES % (AUTO) 7 % (0-12); NEUTROPHILS # (AUTO) 8.7 10^3/uL (1.8-7.8); NEUTROPHILS % (AUTO) 64 % (42-75); PLATELET COUNT 264 10^3/uL (130-400); WHITE BLOOD COUNT 13.7 10^3/uL (4.3-11.0)
[2021-03-14 21:43] LABS: ALBUMIN 4.6 GM/DL (3.2-4.5); CHLORIDE 106 MMOL/L (98-107); POTASSIUM 3.9 MMOL/L (3.6-5.0); SODIUM 142 MMOL/L (135-145)
[2021-03-14 21:45] LABS: CALCIUM 10.1 MG/DL (8.5-10.1)
[2021-03-14 21:46] LABS: GLUCOSE 92 MG/DL (70-105); TOTAL PROTEIN 7.5 GM/DL (6.4-8.2)
[2021-03-14 21:47] LABS: CARBON DIOXIDE 22 MMOL/L (21-32)
[2021-03-14 21:48] LABS: BILIRUBIN,TOTAL 0.5 MG/DL (0.1-1.0)
[2021-03-14 21:50] LABS: ALKALINE PHOSPHATASE 82 U/L (40-136); CREATININE SERUM 0.74 MG/DL (0.60-1.30); GFR ESTIMATED > 60
[2021-03-14 21:51] LABS: BUN/CREATININE RATIO 14
[2021-03-14 21:52] LABS: SALICYLATE < 5.0 MG/DL (5.0-20.0)
[2021-03-14 21:53] LABS: ALANINE AMINOTRANSFERASE 15 U/L (0-55)
[2021-03-14] MEDS ORDERED: LACTATED RINGERS 1,000 ML IV ONE ×2 (21:55→22:00)
[2021-03-14 21:57] LABS: ACETAMINOPHEN < 10 UG/ML (10-30)
[2021-03-15 04:11] LABS: BILIRUBIN,URINE NEGATIVE (NEGATIVE); CLARITY,URINE CLOUDY; COLOR,URINE YELLOW; GLUCOSE, URINE (UA) NEGATIVE (NEGATIVE); KETONES,URINE 2+ (NEGATIVE); LEUKOCYTE ESTERASE ,URINE 3+ (NEGATIVE); NITRITE,URINE POSITIVE (NEGATIVE); PROTEIN,URINE NEGATIVE (NEGATIVE)
[2021-03-15 04:18] LABS: BACTERIA,URINE LARGE /HPF; RBC,URINE 0-2 /HPF; SQUAMOUS EPITHELIAL CELL,UR RARE /HPF; WBC,URINE 25-50 /HPF
[2021-03-15 04:25] LABS: AMPHETAMINE SCREEN, URINE POSITIVE (NEGATIVE); BARBITURATE SCREEN URINE NEGATIVE (NEGATIVE); BENZODIAZEPINES SCREEN URINE NEGATIVE (NEGATIVE); CANNABINOID SCREEN, URINE POSITIVE (NEGATIVE); COCAINE SCREEN URINE NEGATIVE (NEGATIVE); METHADONE STAT NEGATIVE (NEGATIVE); METHAMPHETAMINE SCREEN URINE S POSITIVE (NEGATIVE); OPIATE SCREEN URINE NEGATIVE (NEGATIVE); OXYCODONE STAT NEGATIVE (NEGATIVE); PROPOXYPHENE STAT NEGATIVE (NEGATIVE); TRICYCLIC ANTIDEPRESSANTS SCRE NEGATIVE (NEGATIVE)
[2021-03-15] MEDS ORDERED: cefTRIAXone 1,000 MG in WATER (STERILE) FOR INJECTION 10 ML IV ONE (05:00)
[2021-03-15] MEDS ORDERED: CEPH500T PO (06:19)
[2021-03-15 12:17] VITALS: BP 128/88
== END 2021-03-15 12:17 | disposition home or self-care (01) ==
LOC: EDUNIT# 20:05 → ER 20:07
DX: R45.851 Suicidal ideations (principal); F15.10 Other stimulant abuse, uncomplicated; N39.0 Urinary tract infection, site not specified; F20.0 Paranoid schizophrenia; F41.9 Anxiety disorder, unspecified; F32.9 Major depressive disorder, single episode, unspecified; F17.210 Nicotine dependence, cigarettes, uncomplicated; Z20.822 Contact with and (suspected) exposure to COVID-19; Z79.52 Long term (current) use of systemic steroids; Z79.899 Other long term (current) drug therapy
CPT/HCPCS: 80053; 80306; 81000; 84703; 85025; 87088; 87636; 93041; 99284; G0480 ×3; 36415; 80320; 80329; 87077; 87186

== ENCOUNTER 2021-03-20 18:57 | Emergency (ER) | payer SELFPAY ==
[~2021-03-20] VITALS: Ht 154 cm; Wt 63.0 kg
[~2021-03-20 18:57] MED LIST changes: +CEPH500T PO
--- NOTE | 2021-03-20 19:30 | ED Psychosocial ---
General Chief Complaint: Psych/Social Disorder Stated Complaint: PSYCH Source: patient, old records Exam Limitations: other (EXTREMELY DIFFICULT HISTORIAN--SPEECH IS VERY RAPID, ERRRATIC, TANGENTIAL, NON-SENSICAL AND NON-RELVANT, EXTREMELY DIFFICULTY TO KEEP ON SUBJECT, RAMBLES ON AT GREAT LENGTH) History of Present Illness Date Seen by Provider: Mar 20, 2021 Time Seen by Provider: 19:20 Initial Comments PT ARRIVES VIA POV FROM HOME "WANTING HELP" PT DENIES SUICIDAL IDEATIONS OR ATTEMPT AT THIS TIME IS EXTREMELY DIFFICULT TO OBTAIN A HISTORY FROM PT PT WITH LONG HISTORY OF SUBSTANCE ABUSE, ESPECIALLY METHAMPHETAMINES PT WAS HERE Allergies and Home Medications Allergies Coded Allergies: No Known Drug Allergies (Unverified , 07/30/13) Home Medications Amoxicillin 500 Mg Capsule, 1,000 MG PO BID Prescribed by: JOSE LUIS ROBLEDO on 04/29/171951 Cefuroxime Axetil 250 Mg Tablet, 250 MG PO BID Prescribed by: MARÍA WALSH on 02/09/21 153 Cephalexin 500 Mg Tablet, 500 MG PO BID Prescribed by: JOSE LUIS ROBLEDO on 03/15/21 0619 Fluoxetine Hcl 20 Mg Capsule, 1 EACH PO DAILY, (Reported) Ibuprofen 600 Mg Tab, 600 MG PO Q6H PRN for PAIN Prescribed by: JERAMY COLON on 12/31/14 0817 Ondansetron 4 Mg Tab.rapdis, 4 MG PO Q6H PRN for NAUSEA/VOMITING-1ST LINE Prescribed by: JOSE LUIS ROBLEDO on 04/29/171946 Penicillin V Potassium 500 Mg Tablet, 500 MG PO QID Prescribed by: RAUL DE SOUZA on 05/11/16702 Prednisone 10 Mg Tab, 40 MG PO DAILY Prescribed by: RAUL DE SOUZA on 05/11/16702 Prednisone 20 Mg Tab, 40 MG PO DAILY Prescribed by: MARÍA WALSH on 02/09/21 1534 Past Vqvivwk-Fybagr-Xrepnc Hx Immunizations Up To Date Tetanus Booster (TDap): Less than 5yrs PED Vaccines UTD: No Seasonal Allergies Seasonal Allergies: No Past Medical History Surgery/Hospitalization HX: denies Surgeries: Yes ( X 2) Section Respiratory: No Cardiac: No Neurological: No Reproductive Disorders: No Genitourinary: No Gastrointestinal: No Musculoskeletal: No Endocrine: No HEENT: No Tonsilitis Cancer: No Psychosocial: Yes Anxiety, Depression Integumentary: No Blood Disorders: No Adverse Reaction/Blood Tranf: No Family Medical History Family history: Asthma 03 MOTHER Family history: Diabetes mellitus 03 FATHER PATERNAL GRANDMOTHER Stroke 03 FATHER Physical Exam Vital Signs - First Documented 03/20/21 19:30 Temp 37.6 Pulse 86 Resp 16 B/P (MAP) 112/74 (87) Pulse Ox 98 O2 Delivery Room Air Capillary Refill : Height, Weight, BMI Height: 5'2" Weight: 140lbs. 4.0oz. 63.453202wp; 23.00 BMI Method:Stated Progress/Results/Core Measures Results/Orders Lab Results Laboratory Tests Test 03/20/21 19:45 03/20/21 20:00 03/20/21 20:08 Range/Units Urine Color ORANGE Urine Clarity SL CLOUDY Urine pH 6.0 5-9 Urine Specific [place] 1.025 H 1.016-1.022 Urine Protein NEGATIVE NEGATIVE Urine Glucose (UA) NEGATIVE NEGATIVE Urine Ketones TRACE H NEGATIVE Urine Nitrite NEGATIVE NEGATIVE Urine Bilirubin NEGATIVE NEGATIVE Urine Urobilinogen 1.0 < = 1.0 MG/DL Urine Leukocyte Esterase NEGATIVE NEGATIVE Urine RBC (Auto) NEGATIVE NEGATIVE Urine RBC NONE /HPF Urine WBC 5-10 H /HPF Urine Squamous Epithelial Cells NONE /HPF Urine Renal Epithelial Cells NONE /HPF Urine Crystals PRESENT H /LPF Urine Calcium Oxalate Crystals FEW H /LPF Urine Bacteria NEGATIVE /HPF Urine Casts NONE /LPF Urine Mucus LARGE H /LPF Urine Culture Indicated NO Urine Opiates Screen NEGATIVE NEGATIVE Urine Oxycodone Screen NEGATIVE NEGATIVE Urine Methadone Screen NEGATIVE NEGATIVE Urine Propoxyphene Screen NEGATIVE NEGATIVE Urine Barbiturates Screen NEGATIVE NEGATIVE Ur Tricyclic Antidepressants Screen NEGATIVE NEGATIVE Urine Phencyclidine Screen NEGATIVE NEGATIVE Urine Amphetamines Screen NEGATIVE NEGATIVE Urine Methamphetamines Screen NEGATIVE NEGATIVE Urine Benzodiazepines Screen NEGATIVE NEGATIVE Urine Cocaine Screen NEGATIVE NEGATIVE Urine Cannabinoids Screen POSITIVE H NEGATIVE White Blood Count 10.3 4.3-11.0 10^3/uL Red Blood Count 4.48 3.80-5.11 10^6/uL Hemoglobin 13.1 11.5-16.0 g/dL Hematocrit 41 35-52 % Mean Corpuscular Volume 92 80-99 fL Mean Corpuscular Hemoglobin 29 25-34 pg Mean Corpuscular Hemoglobin Concent 32 32-36 g/dL Red Cell Distribution Width 13.5 10.0-14.5 % Platelet Count 191 130-400 10^3/uL Mean Platelet Volume 12.5 H 9.0-12.2 fL Immature Granulocyte % (Auto) 1 % Neutrophils (%) (Auto) 63 42-75 % Lymphocytes (%) (Auto) 28 12-44 % Monocytes (%) (Auto) 6 0-12 % Eosinophils (%) (Auto) 2 0-10 % Basophils (%) (Auto) 0 0-10 % Neutrophils # (Auto) 6.4 1.8-7.8 10^3/uL Lymphocytes # (Auto) 2.9 1.0-4.0 10^3/uL Monocytes # (Auto) 0.6 0.0-1.0 10^3/uL Eosinophils # (Auto) 0.2 0.0-0.3 10^3/uL Basophils # (Auto) 0.0 0.0-0.1 10^3/uL Immature Granulocyte # (Auto) 0.1 0.0-0.1 10^3/uL Neutrophils % (Manual) 66 % Lymphocytes % (Manual) 28 % Monocytes % (Manual) 5 % Eosinophils % (Manual) 1 % Blood Morphology Comment NORMAL Sodium Level 140 135-145 MMOL/L Potassium Level 3.5 L 3.6-5.0 MMOL/L Chloride Level 107 98-107 MMOL/L Carbon Dioxide Level 25 21-32 MMOL/L Anion Gap 8 5-14 MMOL/L Blood Urea Nitrogen 5 L 7-18 MG/DL Creatinine 0.72 0.60-1.30 MG/DL Estimat Glomerular Filtration Rate 98 BUN/Creatinine Ratio 7 Glucose Level 93 70-105 MG/DL Calcium Level 9.2 8.5-10.1 MG/DL Corrected Calcium 9.0 8.5-10.1 MG/DL Total Bilirubin 0.2 0.1-1.0 MG/DL Aspartate Amino Transf (AST/SGOT) 13 5-34 U/L Alanine Aminotransferase (ALT/SGPT) 9 0-55 U/L Alkaline Phosphatase 81 40-136 U/L Total Protein 7.2 6.4-8.2 GM/DL Albumin 4.3 3.2-4.5 GM/DL TSH [place] Testing 0.78 0.35-4.94 UIU/ML Serum Test, Qualitative NEGATIVE NEGATIVE Salicylates Level < 5.0 L 5.0-20.0 MG/DL Acetaminophen Level < 10 L 10-30 UG/ML Serum Alcohol < 10 <10 MG/DL SARS-CoV-2 RNA (RT-PCR) Not Detected Not Detecte My Orders Orders - RAUL DE SOUZA DO Urinalysis (03/20/21 19:20) Thyroid Analyzer (03/20/21 19:20) Drug Screen Stat (Urine) (03/20/21 19:20) Cbc With Automated Diff (03/20/21 19:20) Comprehensive Metabolic Panel (03/20/21 19:20) Alcohol (03/20/21 19:20) Acetaminophen (03/20/21 19:20) Salicylate (03/20/21 19:20) Ekg Tracing (03/20/21 19:20) Monitor-Rhythm Ecg Trace Only (03/20/21 19:20) Hcg,Qualitative Serum (03/20/21 19:20) Covid 19 Inhouse Test (03/20/21 20:03) Manual Differential (03/20/21 20:00) General/Regular (03/20/21 Dinner) Vital Signs/I&O 03/20/21 19:30 Temp 37.6 Pulse 86 Resp 16 B/P (MAP) 112/74 (87) Pulse Ox 98 O2 Delivery Room Air Progress Progress Note : Progress Note PT REMAINS COOPERATIVE THROUGHOUT ER STAY PT GIVEN A MEAL TRAY PT RESTED/SLEPT FOR REMAINDER OF ER STAY Initial ECG Impression Date: Mar 20, 2021 Initial ECG Impression Time: 19:48 Initial ECG Rate: 79 Initial ECG Rhythm: Normal Sinus Initial ECG Impression: Normal Departure Impression Primary Impression: Suicidal ideations Additional Impressions: Anxiety Depression Departure-Patient Inst. Referrals: [facility] (PCP/Family) Primary Care Physician RAUL DE SOUZA DO Mar 20, 2021 19:30
[2021-03-20 19:58] LABS: BILIRUBIN,URINE NEGATIVE (NEGATIVE); CLARITY,URINE SL CLOUDY; COLOR,URINE ORANGE; GLUCOSE, URINE (UA) NEGATIVE (NEGATIVE); KETONES,URINE TRACE (NEGATIVE); LEUKOCYTE ESTERASE ,URINE NEGATIVE (NEGATIVE); NITRITE,URINE NEGATIVE (NEGATIVE); PROTEIN,URINE NEGATIVE (NEGATIVE)
[2021-03-20 20:06] LABS: BASOPHILS % (AUTO) 0 % (0-10); EOSINOPHILS # (AUTO) 0.2 10^3/uL (0.0-0.3); EOSINOPHILS % (AUTO) 2 % (0-10); HEMATOCRIT 41 % (35-52); HEMOGLOBIN 13.1 g/dL (11.5-16.0); LYMPHOCYTES # (AUTO) 2.9 10^3/uL (1.0-4.0); LYMPHOCYTES % (AUTO) 28 % (12-44); MEAN CORPUSCULAR HEMOGLOBIN 29 pg (25-34); MEAN CORPUSCULAR HGB CONC 32 g/dL (32-36); MEAN CORPUSCULAR VOLUME 92 fL (80-99); MEAN PLATELET VOLUME 12.5 fL (9.0-12.2); MONOCYTES # (AUTO) 0.6 10^3/uL (0.0-1.0); MONOCYTES % (AUTO) 6 % (0-12); NEUTROPHILS # (AUTO) 6.4 10^3/uL (1.8-7.8); NEUTROPHILS % (AUTO) 63 % (42-75); PLATELET COUNT 191 10^3/uL (130-400); WHITE BLOOD COUNT 10.3 10^3/uL (4.3-11.0)
[2021-03-20 20:09] LABS: BACTERIA,URINE NEGATIVE /HPF; CALCIUM OXALATE CRYSTALS,UR FEW /LPF
[2021-03-20 20:12] LABS: AMPHETAMINE SCREEN, URINE NEGATIVE (NEGATIVE); BARBITURATE SCREEN URINE NEGATIVE (NEGATIVE); BENZODIAZEPINES SCREEN URINE NEGATIVE (NEGATIVE); CANNABINOID SCREEN, URINE POSITIVE (NEGATIVE); COCAINE SCREEN URINE NEGATIVE (NEGATIVE); METHADONE STAT NEGATIVE (NEGATIVE); METHAMPHETAMINE SCREEN URINE S NEGATIVE (NEGATIVE); OPIATE SCREEN URINE NEGATIVE (NEGATIVE); OXYCODONE STAT NEGATIVE (NEGATIVE); PROPOXYPHENE STAT NEGATIVE (NEGATIVE); TRICYCLIC ANTIDEPRESSANTS SCRE NEGATIVE (NEGATIVE)
[2021-03-20 20:22] LABS: EOSINOPHILS % (MANUAL) 1 %; MONOCYTES % (MANUAL) 5 %
[2021-03-20 20:23] LABS: LYMPHOCYTES % (MANUAL) 28 %; NEUTROPHILS % (MANUAL) 66 %; RBC MORPH NORMAL
[2021-03-20 20:38] LABS: ALANINE AMINOTRANSFERASE 9 U/L (0-55); ALBUMIN 4.3 GM/DL (3.2-4.5); ALKALINE PHOSPHATASE 81 U/L (40-136); BILIRUBIN,TOTAL 0.2 MG/DL (0.1-1.0); BUN/CREATININE RATIO 7; CALCIUM 9.2 MG/DL (8.5-10.1); CARBON DIOXIDE 25 MMOL/L (21-32); CHLORIDE 107 MMOL/L (98-107); CREATININE SERUM 0.72 MG/DL (0.60-1.30); GFR ESTIMATED 98; GLUCOSE 93 MG/DL (70-105); POTASSIUM 3.5 MMOL/L (3.6-5.0); SALICYLATE < 5.0 MG/DL (5.0-20.0); SODIUM 140 MMOL/L (135-145); TOTAL PROTEIN 7.2 GM/DL (6.4-8.2)
[2021-03-20 20:42] LABS: ACETAMINOPHEN < 10 UG/ML (10-30)
[2021-03-20 20:57] LABS: TSH (THYROID ANALYZER) 0.78 UIU/ML (0.35-4.94)
[2021-03-21 06:47] VITALS: BP 104/87
== END 2021-03-21 06:51 ==
LOC: EDUNIT# 18:57 → ER 19:01
DX: R45.851 Suicidal ideations (principal); F41.9 Anxiety disorder, unspecified; F32.9 Major depressive disorder, single episode, unspecified; Z20.822 Contact with and (suspected) exposure to COVID-19; Z79.52 Long term (current) use of systemic steroids
CPT/HCPCS: 80053; 80306; 81000; 84443; 84703 ×2; 85007; 85027; 87636; 93005; 99283; G0480 ×3; 36415; 80320; 80329